=== PATIENT | female | born 1965 | race American Indian/Alaskan Native ===

== ENCOUNTER 2017-06-28 11:00 | Outpatient (CLI) | payer MEDICAID, MEDICARE | END 2017-06-28 11:01 | disposition home or self-care (01) | LOC: SLR 11:00 | PROVIDERS: ATTEND Otolaryngology | DX: G47.30 Sleep apnea, unspecified (principal); R40.0 Somnolence | CPT/HCPCS: G0399 ==

== ENCOUNTER → 2017-07-04 | Outpatient (CLI) | payer MEDICARE | LOC: SLR 11:00 | PROVIDERS: ATTEND Otolaryngology | DX: G47.33 Obstructive sleep apnea (adult) (pediatric) (principal) | CPT/HCPCS: 95811 ==

== ENCOUNTER 2017-07-26 23:45 | Emergency (ER) | payer MEDICARE ==
[2017-07-27] MEDS ORDERED: ANTIVERT PO ONE (01:39)
[2017-07-27] MEDS ORDERED: NACL 0.9% 1000 ML 1,000 ML IV ONE (01:39)
[2017-07-27] MEDS ORDERED: ZOFRAN IV ONE (01:39)
[2017-07-27] MEDS ORDERED: TORADOL IV ONE (01:39)
[2017-07-27] MEDS ORDERED: ATIVAN IV ONE (01:40)
--- NOTE | 2017-07-27 04:44 | Emergency Department Report ---
ED General Adult HPI - General Chief complaint: Headache Stated complaint: DIZZINESS Time Seen by Provider: 07/27/17 01:19 Source: patient Mode of arrival: Stretcher Limitations: No Limitations - History of Present Illness Initial comments: Patient is a 51-year-old Female past medical history of anxiety and vertigo who is having an episode of vertigo today. Patient for the past 45 hours has had spinning nausea and elevated heart rate. Patient one point felt as though she is going to pass out. Patient states she has headache as well. Patient's son states she's had elevated respiratory rate and patient may be panicking as well. Patient denies any chest pain shortness of breath fevers chills or cough at this time. Location: head Severity scale (0 -10): 9 Quality: aching Consistency: constant - Related Data Home Medications Medication Instructions Recorded Confirmed Last Taken FLUoxetine 80 mg PO DAILY 07/27/17 07/27/17 Unknown HCTZ 25 mg PO DAILY 07/27/17 07/27/17 Unknown clonazePAM 1.5 mg PO BID PRN 07/27/17 07/27/17 Unknown Previous Rx's Medication Instructions Recorded Last Taken Type Meclizine [Antivert] 25 mg PO TID PRN #12 tablet 07/27/17 Unknown Rx Ondansetron [Zofran Odt] 4 mg PO Q8HR PRN #10 tab.rapdis 07/27/17 Unknown Rx Allergies Allergy/AdvReac Type Severity Reaction Status Date / Time No Known Allergies Allergy Unverified 07/27/17 01:05 ED Review of Systems ROS: Stated complaint: DIZZINESS Other details as noted in HPI Comment: All other systems reviewed and negative ED Past Medical Hx - Past Medical History Hx Hypertension: Yes Hx Psychiatric Treatment: Yes (PTSD) Additional medical history: Vertigo, Hypothyroidism - Surgical History Additional Surgical History: Tubal Ligation, Tonsillectomy - Social History Smoking Status: Never Smoker Substance Use Type: None - Medications Home Medications: Home Medications Medication Instructions Recorded Confirmed Last Taken Type FLUoxetine 80 mg PO DAILY 07/27/17 07/27/17 Unknown History HCTZ 25 mg PO DAILY 07/27/17 07/27/17 Unknown History Meclizine [Antivert] 25 mg PO TID PRN #12 tablet 07/27/17 Unknown Rx Ondansetron [Zofran Odt] 4 mg PO Q8HR PRN #10 tab.rapdis 07/27/17 Unknown Rx clonazePAM 1.5 mg PO BID PRN 07/27/17 07/27/17 Unknown History ED Physical Exam - General Limitations: No Limitations General appearance: alert, anxious - Head Head exam: Present: atraumatic, normocephalic - Eye Eye exam: Present: normal appearance - ENT ENT exam: Present: mucous membranes moist - Neck Neck exam: Present: normal inspection - Respiratory Respiratory exam: Present: normal lung sounds bilaterally. Absent: respiratory distress - Cardiovascular Cardiovascular Exam: Present: regular rate, normal rhythm. Absent: systolic murmur, diastolic murmur, rubs, gallop - GI/Abdominal GI/Abdominal exam: Present: soft, normal bowel sounds. Absent: distended, tenderness, guarding - Extremities Exam Extremities exam: Present: normal inspection - Back Exam Back exam: Present: normal inspection - Neurological Exam Neurological exam: Present: alert, oriented X3 - Psychiatric Psychiatric exam: Present: normal affect, normal mood - Skin Skin exam: Present: warm, dry, intact, normal color. Absent: rash ED Course Vital Signs 07/27/17 07/27/17 00:57 04:11 Temperature 98.7 F Pulse Rate 86 Respiratory 16 20 Rate Blood Pressure 129/79 O2 Sat by Pulse 96 98 Oximetry ED Medical Decision Making - Medical Decision Making Patient is a 51-year-old Female past medical history of anxiety and vertigo. Patient was given nausea medicine IV fluids and Ativan as well as Antivert and is feeling better patient will be discharged home. Critical care attestation.: If time is entered above; I have spent that time in minutes in the direct care of this critically ill patient, excluding procedure time. ED Disposition Clinical Impression: Vertigo, Anxiety reaction Disposition: DC-01 TO HOME OR SELFCARE Is pt being admited?: No Does the pt Need Aspirin: No Condition: Stable Instructions: Vertigo (ED) Prescriptions: Meclizine [Antivert] 25 mg PO TID PRN #12 tablet PRN Reason: Vertigo Ondansetron [Zofran Odt] 4 mg PO Q8HR PRN #10 tab.rapdis PRN Reason: Nausea Referrals: DONAL HINES MD [Primary Care Provider] - 3-5 Days
[2017-07-27 05:13] VITALS: BP 128/87
== END 2017-07-27 05:47 | disposition home or self-care (01) ==
LOC: ED 23:45
DX: F41.9 Anxiety disorder, unspecified (principal); I10 Essential (primary) hypertension; F43.10 Post-traumatic stress disorder, unspecified; E03.9 Hypothyroidism, unspecified; Z98.51 Tubal ligation status
CPT/HCPCS: 96361; 96374; 96375; 99283; J1885; J2060; J2405; J7030

== ENCOUNTER 2019-02-22 16:41 | Emergency (ER) | payer MEDICARE ==
[2019-02-22 16:53] VITALS: BP 129/91
--- NOTE | 2019-02-22 16:53 | Event Note ---
ED Screening Note Date of service: 02/22/19 Time: 16:53 ED Screening Note: Patient reports car door hit her really hard in head and she has a cut that was bleeding. Denies n/v. Reports Headache at rt frontal head /10. reports dizziness GCS 15, Alet and oriented x 3 LT frontal laceration with bleeding. This initial assessment/diagnostic orders/clinical plan/treatment(s) is/are subject to change based on patients health status, clinical progression and re- assessment by fellow clinical providers in the ED. Further treatment and workup at subsequent clinical providers discretion. Patient/guardian urged not to elope from the ED as their condition may be serious if not clinically assessed and managed. Initial orders include: CT head
[2019-02-22] MEDS ORDERED: ULTRAM PO ONE (17:35)
[2019-02-22] MEDS ORDERED: BOOSTRIX IM ONE (17:35)
--- NOTE | 2019-02-22 17:46 | Cat Scan Report ---
CT head/brain wo con INDICATION: head injury with QU[place]. TECHNIQUE: Routine CT head without contrast. All CT scans at this location are performed using CT dos e reduction for ALARA by means of automated exposure control. COMPARISON: None. FINDINGS: BRAIN / INTRACRANIAL CONTENTS: No acute hemorrhage, mass effect, midline shift, or hydrocephalus. No appreciable acute large territorial or lacunar infarct. No chronic infarct or focal atrophy. Normal b rain volume and ventricular/sulcal size for age. ORBITS: No significant abnormality of visualized orbits. SINUSES / MASTOIDS: No significant abnormality of visualized sinuses and mastoid air cells. ADDITIONAL FINDINGS: None. IMPRESSION: 1. No acute intracranial abnormality. Signer Name: Tylor Francis MD Signed: 02/22/2019 5:42 PM Workstation Name: [id number]
--- NOTE | 2019-02-22 17:51 | Emergency Department Report ---
- General Chief Complaint: Head Injury Stated Complaint: HEAD INJURY Time Seen by Provider: 02/22/19 16:52 Source: patient, family Mode of arrival: Ambulatory Limitations: No Limitations - History of Present Illness Initial Comments: Patient is a 53-year-old female presents emergency room with complaints of a laceration to the left forehead that occurred just prior to arrival. States she was opening the car door and hit herself against the corner edge of the car door. She states that she has pain around the laceration site. she denies any loss of consciousness, vomiting, vision changes, gait disturbance, numbness, weakness, any other symptoms or injury. She states she is not sure when her last tetanus immunization was. Has a past medical history of gastric sleeve and hypertension. She states she has an allergy to morphine. - Related Data Home Medications Medication Instructions Recorded Confirmed Last Taken FLUoxetine 80 mg PO DAILY 07/27/17 07/27/17 Unknown HCTZ 25 mg PO DAILY 07/27/17 07/27/17 Unknown clonazePAM 1.5 mg PO BID PRN 07/27/17 07/27/17 Unknown Previous Rx's Medication Instructions Recorded Last Taken Type Meclizine [Antivert] 25 mg PO TID PRN #12 tablet 07/27/17 Unknown Rx Ondansetron [Zofran Odt] 4 mg PO Q8HR PRN #10 tab.rapdis 07/27/17 Unknown Rx Allergies Allergy/AdvReac Type Severity Reaction Status Date / Time No Known Allergies Allergy Unverified 07/27/17 01:05 ED Review of Systems ROS: Stated complaint: HEAD INJURY Other details as noted in HPI Comment: All other systems reviewed and negative ED Past Medical Hx - Past Medical History Previous Medical History?: Yes Hx Hypertension: Yes Hx Psychiatric Treatment: Yes (PTSD, Anxiety) Additional medical history: Vertigo, Hypothyroidism - Surgical History Past Surgical History?: Yes Additional Surgical History: Tubal Ligation, Tonsillectomy, Gastric sleeve - Social History Smoking Status: Never Smoker Substance Use Type: Alcohol, Prescribed - Medications Home Medications: Home Medications Medication Instructions Recorded Confirmed Last Taken Type FLUoxetine 80 mg PO DAILY 07/27/17 07/27/17 Unknown History HCTZ 25 mg PO DAILY 07/27/17 07/27/17 Unknown History Meclizine [Antivert] 25 mg PO TID PRN #12 tablet 07/27/17 Unknown Rx Ondansetron [Zofran Odt] 4 mg PO Q8HR PRN #10 tab.rapdis 07/27/17 Unknown Rx clonazePAM 1.5 mg PO BID PRN 07/27/17 07/27/17 Unknown History ED Physical Exam - General Limitations: No Limitations General appearance: alert, in no apparent distress - Head Head exam: Present: normocephalic, other (2 cm superficial laceration to the left forehead, only through the dermis and epidermis, no foreign body present, no active bleeding, no skull bony TTP) - Eye Eye exam: Present: normal appearance, PERRL, EOMI, other (no racoon eyes). Absent: periorbital swelling, periorbital tenderness - ENT ENT exam: Present: mucous membranes moist - Respiratory Respiratory exam: Present: normal lung sounds bilaterally. Absent: respiratory distress, wheezes, rales, rhonchi, stridor, chest wall tenderness, accessory muscle use, decreased breath sounds, prolonged expiratory - Cardiovascular Cardiovascular Exam: Present: regular rate, normal rhythm, normal heart sounds. Absent: systolic murmur, diastolic murmur, rubs, gallop - Neurological Exam Neurological exam: Present: alert, oriented X3, CN II-XII intact, normal gait. Absent: motor sensory deficit - Psychiatric Psychiatric exam: Present: normal affect, normal mood - Skin Skin exam: Present: warm, dry ED Course Vital Signs 02/22/19 16:46 Temperature 98 F Pulse Rate 103 H Respiratory 20 Rate Blood Pressure 129/91 O2 Sat by Pulse 99 Oximetry - Laceration /Wound Repair Left Head Wound Location: head (left forehead) Wound Length (cm): 2 Wound's Depth, Shape: superficial Wound Explored: clean Irrigated w/ Saline (ccs): 100 Betadine Prep?: Yes Volume Anesthetic (ccs): 0 Wound Repaired With: Dermabond (with steri strips) Layer Closure?: No Sterile Dressing Applied?: Yes Progress: Wound irrigated with saline and scrubbed with Betadine, no foreign body identified, wound is superficial only through the epidermis and dermis, Dermabond used for skin closure, Steri-Strips applied, patient tolerated well, no complications, bleeding controlled, sterile dressing applied ED Medical Decision Making - Radiology Data Radiology results: report reviewed CT head/brain wo con INDICATION: head injury with QUINTA[place]. TECHNIQUE: Routine CT head without contrast. All CT scans at this location are performed using CT dose reduction for ALARA by means of automated exposure control. COMPARISON: None. FINDINGS: BRAIN / INTRACRANIAL CONTENTS: No acute hemorrhage, mass effect, midline shift, or hydrocephalus. No appreciable acute large territorial or lacunar infarct. No chronic infarct or focal atrophy. Normal brain volume and ventricular/sulcal size for age. ORBITS: No significant abnormality of visualized orbits. SINUSES / MASTOIDS: No significant abnormality of visualized sinuses and mastoid air cells. ADDITIONAL FINDINGS: None. IMPRESSION: 1. No acute intracranial abnormality. Signer Name: Tylor Francis MD Signed: 02/22/2019 5:42 PM Workstation Name: [id number] Transcribed By: JENNIFER Dictated By: Tylor Francis MD Electronically Authenticated By: Tylor Francis MD Signed Date/Time: 02/22/19 1742 - Medical Decision Making Patient is a 53-year-old female presents emergency room with complaints of a laceration to the left forehead that occurred just prior to arrival. States she was opening the car door and hit herself against the corner edge of the car door. She states that she has pain around the laceration site. she denies any loss of consciousness, vomiting, vision changes, gait disturbance, numbness, weakness, any other symptoms or injury. She states she is not sure when her last tetanus immunization was. Has a past medical history of gastric sleeve and hypertension. She states she has an allergy to morphine. VSS. CT head: 1. No acute intracranial abnormality. on exam: 2 cm superficial laceration to the left forehead, only through the dermis and epidermis, no foreign body present, no active bleeding, no skull bony TTP, no racoon eyes. wound irrigated with saline and scrubbed with betadine. repaired per procedure note with dermabond and steri strips. advised pt to please keep area clean and dry. Keep current Steri-Strips in place for 2 days. after two days may wash with soap and water and immediately dry. No hot tub, pool, soaking in water. Follow-up with a primary care doctor in the next 3-5 days for reexamination. return to the emergency room for any new or worsening symptoms. Critical care attestation.: If time is entered above; I have spent that time in minutes in the direct care of this critically ill patient, excluding procedure time. ED Disposition Clinical Impression: Laceration of forehead Qualifiers: Encounter type: initial encounter Qualified Code(s): S01.81XA - Laceration without foreign body of other part of head, initial encounter Disposition: DC- TO HOME OR SELFCARE Is pt being admited?: No Does the pt Need Aspirin: No Condition: Stable Instructions: Laceration (ED), Skin Adhesive Care (ED) Additional Instructions: Please keep area clean and dry. Keep current Steri-Strips in place for 2 days. after two days may wash with soap and water and immediately dry. No hot tub, pool, soaking in water. Follow-up with a primary care doctor in the next 3-5 days for reexamination. return to the emergency room for any new or worsening symptoms. Referrals: [facility] [Provider Group] - 3-5 Days Time of Disposition: 18:38 Print Language: TAMAZIGHT
== END 2019-02-22 18:54 | disposition home or self-care (01) ==
LOC: ED 16:41
DX: S01.81XA Laceration without foreign body of other part of head, initial encounter (principal); I10 Essential (primary) hypertension; F43.10 Post-traumatic stress disorder, unspecified; F41.9 Anxiety disorder, unspecified; E03.9 Hypothyroidism, unspecified; Z98.51 Tubal ligation status; Z90.89 Acquired absence of other organs; Z98.84 Bariatric surgery status; Z79.899 Other long term (current) drug therapy; W26.8XXA Contact with other sharp object(s), not elsewhere classified, initial encounter; Y93.89 Activity, other specified; Y92.89 Other specified places as the place of occurrence of the external cause; Y99.8 Other external cause status
CPT/HCPCS: 70450; 90471; 90715